=== PATIENT | male | born 1980 | race African-American/Black ===

== ENCOUNTER 2024-02-03 15:44 | Emergency (ER) | payer OTHER ==
[2024-02-03 16:14] VITALS: BMI 18.3
[2024-02-03] MEDS ORDERED: ACETAMINOPHEN 500 MG TABLET (FP) ONE (16:34)
[2024-02-03] MEDS: ACETAMINOPHEN 500 MG TABLET (FP) PO ONE (16:50)
[2024-02-03 16:57] LABS: BASO % 1.1 % (0-2.0); EOS % 6.3 % (0-4.5); HEMATOCRIT 42.1 % (35.4-49); HEMOGLOBIN 14.4 GM/dL (11.7-16.9); LYMPH % 37.1 % (8-40); MCH 32.9 pg (25.7-33.7); MCHC 34.1 g/dl (32.0-35.9); MEAN CELL VOLUME 96.4 fl (80-96); MEAN PLT VOLUME 7.4 fl (7.5-11.1); MONO % 11.8 % (3.8-10.2); NEUT % 43.7 % (42.8-82.8); PLATELET COUNT 203 10^3/uL (134-434); RBC 4.37 M/mm3 (4.00-5.60); RDW 13.4 % (11.9-15.9); WHITE BLOOD COUNT 5.2 K/mm3 (4.0-10.0)
[2024-02-03 17:02] LABS: PROTHROMBIN TIME (PATIENT) 11.5 SEC (9.7-13.0)
[2024-02-03 17:05] LABS: ACTIVATED PTT 30.5 SECONDS (25.2-36.5)
[2024-02-03 17:17] LABS: POTASSIUM 4.2 mmol/L (3.5-5.1)
[2024-02-03 17:18] LABS: ALBUMIN 3.8 g/dl (3.4-5.0); CALCIUM 9.2 mg/dL (8.5-10.1)
[2024-02-03 17:20] LABS: BLOOD UREA NITROGEN 10.3 mg/dL (7-18)
[2024-02-03 17:22] LABS: CREATININE 0.6 mg/dL (0.55-1.3)
[2024-02-03 17:23] LABS: BILIRUBIN,TOTAL 0.4 mg/dL (0.2-1); TOT PROT 6.9 g/dl (6.4-8.2)
[2024-02-03] MEDS ORDERED: APIXABAN 5 MG TABLET ONE (19:23)
[2024-02-03] MEDS: APIXABAN 5 MG TABLET PO ONE (19:35)
[2024-02-03 22:45] VITALS: BP 104/87; PULSE 82; RESP 16; TEMP 97.8
== END 2024-02-03 22:45 | disposition home or self-care (01) ==
LOC: JER 15:44
DX: I82.401 Acute embolism and thrombosis of unspecified deep veins of right lower extremity (principal); R20.0 Anesthesia of skin; R20.2 Paresthesia of skin
CPT/HCPCS: 36415; 80053; 85025; 85610; 85730; 93970-TC; 99284-25

== ENCOUNTER 2024-04-04 07:10 | Emergency (ER) | payer OTHER ==
[2024-04-04 07:56] VITALS: RESP 18; BMI 17.6
[2024-04-04] MEDS ORDERED: ACETAMINOPHEN 325 MG TABLET (FP) ONE (09:09)
[2024-04-04] MEDS: ACETAMINOPHEN 325 MG TABLET (FP) PO ONE (09:14)
[2024-04-04 12:46] VITALS: BP 92/58; PULSE 85; TEMP 98.6
== END 2024-04-04 13:05 | disposition home or self-care (01) ==
LOC: JER 07:10
DX: M54.50 Low back pain, unspecified (principal)
CPT/HCPCS: 99283-25